=== PATIENT | male | born 1995 | race Two or more races ===

== ENCOUNTER 2020-04-21 10:30 | Emergency (ER) | payer MEDICAID, OTHER ==
[~2020-04-21] VITALS: Ht 182.9 cm; Wt 90.7 kg
--- NOTE | 2020-04-21 10:42 | NUR ---
CALLED PATIENT IN WAITING ROOM, NO ANSWER.
[2020-04-21 10:54] VITALS: BP 148/80
--- NOTE | 2020-04-21 11:23 | NUR ---
PT REFUSED IV ACCESS OR BLOOD DRAW WHEN RN AND COMPOSING MACHINE OPERATOR WHEN TO PTS ROOM. PT STATES HE IS AFRAID OF NEEDLES AND REFUSES BLOOD. EDUCATED PT ON RISKS OF REFUSING BLOOD. PT STILL REFUSES. NOTIFIED DR LOERA.
[2020-04-21] MEDS ORDERED: IV NS 0.9% 1,000 ML BAG IV ONE (11:30)
[2020-04-21] MEDS ORDERED: ONDANSETRON HCL/PF 4 MG/2 ML VIAL IVP ONE (11:30)
[2020-04-21] MEDS ORDERED: ONDANSETRON 4 MG TAB.RAPDIS ONE (11:39)
--- NOTE | 2020-04-21 11:49 | NUR ---
PT REFUSED KATHRYN ODT STATING "I NEED TO DO A FASTING BLOOD TEST TODAY" AND "I'M AFRAID ITS GOING TO HURT MY LIVER". DESPITE EDUCATION, PT REFUSES. Patient does not wish to proceed with medical care recommended by Dr. Bui. Patient given information related to possible complications, up to and including , which could occur as a result of leaving the hospital at this time. Patient verbalizes understanding of risks involved due to leaving against medical advice. Patient has signed AMA form.
--- NOTE | 2020-04-21 11:53 | NUR ---
ambulated from ER with steady gait
[2020-04-21] MEDS ORDERED: ONDANSETRON 4 MG TAB.RAPDIS SL ONE (12:00)
== END 2020-04-21 11:53 | disposition left against medical advice (07) ==
LOC: ER 10:32
DX: E20.9 Hypoparathyroidism, unspecified (principal); R53.1 Weakness; R11.2 Nausea with vomiting, unspecified; Z60.2 Problems related to living alone
CPT/HCPCS: Q0162